=== PATIENT | male | born 1980 | race Caucasian/White ===

== ENCOUNTER 2021-09-17 22:24 | Emergency (ER) | payer SELFPAY ==
[~2021-09-17 22:24] MED LIST: FLEXERIL 10 MG10 MG PO; IBUPROFEN800 MG PO
[2021-09-17] MEDS ORDERED: ENDOCET 5-3251 EACH PO (23:54)
[2021-09-17] MEDS ORDERED: CEPHALEXIN500 M1 PO (23:54)
== END 2021-09-18 01:00 | disposition home or self-care (01) ==
LOC: ER1 22:24
DX: S62.634A Displaced fracture of distal phalanx of right ring finger, initial encounter for closed fracture (principal); S61.214A Laceration without foreign body of right ring finger without damage to nail, initial encounter; S61.212A Laceration without foreign body of right middle finger without damage to nail, initial encounter; Z23 Encounter for immunization; W23.1XXA Caught, crushed, jammed, or pinched between stationary objects, initial encounter; Y92.009 Unspecified place in unspecified non-institutional (private) residence as the place of occurrence of the external cause
CPT/HCPCS: 12002; 73130; 90471; 90715; 99283